=== PATIENT | female | born 1990 | race Caucasian/White ===

== ENCOUNTER 2018-07-05 11:23 | Emergency (ER) | payer OTHER ==
--- NOTE | 2018-07-05 12:12 | RAD ---
RIGHT HAND 3 VIEWS: Date: 07/05/18 HISTORY: Trauma. COMPARISON: None. FINDINGS: No acute displaced fracture or malalignment. Soft tissues are unremarkable. IMPRESSION: No acute fracture or malalignment. POS: [facility]
== END 2018-07-05 12:25 | disposition home or self-care (01) ==
LOC: MADERS 11:23
DX: S63.612A Unspecified sprain of right middle finger, initial encounter (principal); I48.91 Unspecified atrial fibrillation; Z79.899 Other long term (current) drug therapy; Y04.0XXA Assault by unarmed brawl or fight, initial encounter

== ENCOUNTER 2023-05-27 10:44 | Emergency (ER) | payer OTHER ==
[2023-05-27] MEDS ORDERED: Ibuprofen 600 MG TAB ONE (11:38)
== END 2023-05-27 11:54 | disposition home or self-care (01) ==
LOC: MADERS 10:44
DX: S20.20XA Contusion of thorax, unspecified, initial encounter (principal); V89.2XXA Person injured in unspecified motor-vehicle accident, traffic, initial encounter

== ENCOUNTER 2024-04-25 18:57 | Emergency (ER) | payer OTHER ==
[2024-04-25 19:41] LABS: Amphetamine Not Detected (NotDetected); Barbiturates Screen Not Detected (NotDetected); Benzodiazepine Screen Not Detected (NotDetected); Cocaine Metabolite Screen Not Detected (NotDetected); Methadone Not Detected (NotDetected); Methamphetamine Not Detected (NotDetected); Opiate Screen Not Detected (NotDetected); Oxycodone Screen Not Detected (NotDetected); Phencyclidine (PCP) Not Detected (NotDetected); THC/Cannabinoid Screen Not Detected (NotDetected); Tricyclic Screen Not Detected (NotDetected)
== END 2024-04-25 19:44 | disposition home or self-care (01) ==
LOC: MADERS 18:57
DX: Z04.1 Encounter for examination and observation following transport accident (principal); I10 Essential (primary) hypertension; V49.40XA Driver injured in collision with unspecified motor vehicles in traffic accident, initial encounter
CPT/HCPCS: 80306; 99284